=== PATIENT | female | born 1970 | race Caucasian/White ===

== ENCOUNTER → 2016-04-04 | Outpatient (CLI) | payer OTHER ==
--- NOTE | 2016-04-04 14:41 | US ---
Ultrasound left Breast History: Palpable abnormality in left breast lower outer quadrant. Technique: Ultrasound imaging of the lower outer quadrant of the left breast from the 2 to the 6 o'cl ock position was performed by the network applications specialist and me. Findings: In the left breast at the 5 o'clock position 1 cm from nipple there is a simple cyst measur ing 1.1 x 1 x 1 cm. No evidence of solid lesions identified in the lower outer quadrant of the left b reast from the 2 to the 6 o'clock position. Impression: 1. BI-RADS 2: Benign finding.. 2. For left breast simple cyst measuring 1.1 cm at the 5 o'clock position correlating to the region o f palpable concern. 3. Recommend continued clinical monitoring and treatment based on clinical suspicion. 4. Recommend annual screening mammograms with next mammogram in November 2016. Findings and recommendations have been discussed with the patient who agrees with the plan.
== END ==
LOC: CIMAGING 13:40
PROVIDERS: ATTEND Family Medicine
DX: N60.02 Solitary cyst of left breast (principal)
CPT/HCPCS: 76641-PO

== ENCOUNTER → 2016-11-28 | Outpatient (CLI) | payer OTHER | LOC: CIMAGING 08:23 | PROVIDERS: ATTEND Family Medicine | DX: Z12.31 Encounter for screening mammogram for malignant neoplasm of breast (principal) | CPT/HCPCS: G0202 ==